=== PATIENT | male | born 1960 | race Hispanic/Latino ===

== ENCOUNTER 2018-03-26 10:28 | Emergency (ER) | payer OTHER ==
[2018-03-26 10:32] VITALS: BMI 26.6
[2018-03-26 10:37] VITALS: TEMP 99.2; O2SAT 100
--- NOTE | 2018-03-26 11:27 | C.PDOC ---
History Of Present Illness Patient is a 58 y/o male with a history of arthritis presenting to the ER with complaints of right sided pain under the rib that began 10 days ago. The pain radiates up his collarbones and down his shoulder blades. He states he is unable to sleep, lay down, or sit down for long periods of time. He denies any nausea, vomiting, or diarrhea. He reports he has taken tramadol and clonazepam with mild relief. Time Seen by Provider: 03/26/18 11:01 Chief Complaint (Nursing): Back Pain History Per: Patient History/Exam Limitations: no limitations Onset/Duration Of Symptoms: Days Current Symptoms Are (Timing): Still Present Past Medical History Reviewed: Historical Data, Nursing Documentation, Vital Signs Vital Signs: Last Vital Signs Temp 99.2 F 03/26/18 10:32 Pulse 75 03/26/18 11:35 Resp 20 03/26/18 11:35 BP 140/89 03/26/18 11:35 Pulse Ox 100 03/26/18 11:38 - Medical History PMH: Fractures (RT.ANKLE/RT.KNUCKLE NO SURGERY), Hepatitis (C), Hiatal Hernia Denies: Chronic Kidney Disease Other PMH: Arthritis Surgical History: Appendectomy - [facility] REPAIR ABDOMINAL WALL, OPEN APPROACH (10/12/16) Family History: States: No Known Family Hx - Social History Hx Alcohol Use: No Hx Substance Use: Yes ("I smoke pot") Review Of Systems Except As Marked, All Systems Reviewed And Found Negative. Gastrointestinal: Negative for: Nausea, Vomiting, Diarrhea Musculoskeletal: Positive for: Other (Right sided pain under ribs) Physical Exam - Physical Exam Appears: Non-toxic, No Acute Distress Skin: Normal Color, Warm, Dry Head: Atraumatic, Normacephalic Eye(s): bilateral: Normal Inspection Oral Mucosa: Moist Neck: Supple Chest: Symmetrical Gastrointestinal/Abdominal: Soft, No Tenderness, No Distention, No Guarding Extremity: Normal ROM Neurological/Psych: Oriented x3 Gait: Steady ED Course And Treatment O2 Sat by Pulse Oximetry: 100 (RA) Pulse Ox Interpretation: Normal Medical Decision Making Medical Decision Making: Patient prescribed Flexeril 5 mg PO for pain. Rx written for the same. Patient states that he just wants some relief so that he can sleep. Has tried tramadol for the pain with minimal relief. Also tried klonopin and trazodone to sleep. He does display some erratic behavior, has pressured speech and mild flight of ideas. Patient asking for Percocet, states "I don't want to be an addict but I just need some percocet to function". Also notes that "when I was in the hospital whatever they put in that drip worked for my pain". Explained that he can continue taking his home tramadol and also use tylenol or motrin, and can take flexeril which will hopefully help with muscle spasm. Advised followup with PMD as needed. Also suggested pain management as patient reports long standing history of "whole body arthritis" which is how he got the tramadol in the first place, patient states "everyone keeps telling me to do that". Patient is ambulatory in the emergency department with no signs of discomfort. Patient was advised to follow up with physician/clinic in 1-2 days. Disposition - Disposition Disposition: HOME/ ROUTINE Disposition Time: 11:35 Condition: GOOD Additional Instructions: JOSEF ARIAS, thank you for letting us take care of you today. Your provider was Zoya Fragoso MD and you were treated for BACK PAIN. The emergency medical care you received today was directed at your acute symptoms. If you were prescribed any medication, please fill it and take as directed. It may take several days for your symptoms to resolve. Return to the Emergency Department if your symptoms worsen, do not improve, or if you have any other problems. Please contact your doctor or call one of the physicians/clinics you have been referred to that are listed on the Patient Visit Information form that is included in your discharge packet. Bring any paperwork you were given at discharge with you along with any medications you are taking to your follow up visit. Our treatment cannot replace ongoing medical care by a primary care provider outside of the emergency department. Thank you for allowing the [facility] team to be part of your care today. If you had an X-Ray or CT scan: A Radiologist will review the ED reading if any change in treatment is needed we will contact you. If you had a blood, urine, or wound culture: It will take several days for the results, if any change in treatment is needed we will contact you. If you had an STI test: It will take 48 hours for the results. Please call after 1 week if you have not heard back. Prescriptions: Cyclobenzaprine [Flexeril] 5 mg PO Q8H #9 tab Instructions: Low Back Pain in Adults Forms: [facility] ([facility]) - Clinical Impression Clinical Impression: Right-sided back pain - Scribe Statement Paulina Aburto All medical record entries made by the Scribe were at my direction and personally dictated by me. I have reviewed the chart and agree that the record accurately reflects my personal performance of the history, physical exam, medical decision making, and the department course for this patient. I have also personally directed, reviewed, and agree with the discharge instructions and disposition.
[2018-03-26 11:37] VITALS: BP 140/89; PULSE 75; RESP 20
== END 2018-03-26 11:36 | disposition home or self-care (01) ==
LOC: C.ER 10:28
DX: M54.9 Dorsalgia, unspecified (principal)